=== PATIENT | female | born 1940 | race African-American/Black ===

== ENCOUNTER → 2016-08-21 | Day surgery (SDC) | payer MEDICARE ==
[~2016-08-21] MED LIST: AMLODIPINE BESY10 MG PO; CLARITIN10 M3 PO; LOSARTAN POTAS100 MG PO
--- NOTE | ~2016-08-21 | OR ---
Unit #: [id number] #: [id number] Patient: GETACHEW MILLER [id number] [address] [address] [id number] O MR#: [id number] NAME: GETACHEW MILLER ROOM: Date of Procedure: 08/21/2016 Admission Date: 08/21/2016 Surgeon: Lui Elizabeth M.D. : 1940 Attending Physician: Lui Elizabeth M.D. Primary Care Physician: Primary Care Physician No OPERATIVE REPORT PROCEDURE PERFORMED Esophagogastroduodenoscopy with biopsy. INDICATIONS FOR PROCEDURE The patient with severe weight loss unexplained, suspected underlying malignancy. MEDICATIONS Monitored anesthesia. POSTOPERATIVE FINDINGS 1. Normal esophagus, but for small hernia. 2. Severe gastritis with nodularity. Biopsies taken. 3. Duodenitis with some nodules. Biopsies taken separately. 4. Descending duodenum was normal. PLAN Avoid NSAIDs. Follow up on pathology report. PPI therapy for now. DESCRIPTION OF PROCEDURE The patient was explained of the procedure, risks, and benefits along with the risks and benefits of anesthesia. She was brought to the endoscopy room. Propofol anesthesia was given. Bite block was placed. The scope was passed down the mouth and esophagus, stomach, duodenum, and distal duodenum. Findings as described. Biopsies taken. Gently, I pulled the scope out of the patient's mouth. She tolerated it well. Dictated by... Mragarita Yi/nato TD: 08/21/2016 23:07 JOB #: [id number] Unit #: [id number] #: [id number] Patient: GETACHEW MILLER OPERATIVE REPORT Page 1 of 1 X Lui Elizabeth MD X PROCEDURE OPERATIVE NOTE
== END | disposition home or self-care (01) ==
LOC: COPS 07:04
DX: K29.50 Unspecified chronic gastritis without bleeding (principal); K29.80 Duodenitis without bleeding; K62.89 Other specified diseases of anus and rectum; R63.4 Abnormal weight loss; I10 Essential (primary) hypertension; F17.210 Nicotine dependence, cigarettes, uncomplicated; Z79.899 Other long term (current) drug therapy; Z90.710 Acquired absence of both cervix and uterus; Z98.890 Other specified postprocedural states
CPT/HCPCS: 88305; 88312